=== PATIENT | female | born 1975 | race Two or more races ===

== ENCOUNTER → 2023-08-02 06:38 | Day surgery (SDC) | payer BC, SELFPAY | LOC: GI 06:38 | PROVIDERS: ATTENDING PHYSICIAN Internal Medicine Gastroenterology | DX: D12.0 Benign neoplasm of cecum (principal); D12.3 Benign neoplasm of transverse colon; K63.5 Polyp of colon; K62.5 Hemorrhage of anus and rectum; Z98.890 Other specified postprocedural states | CPT/HCPCS: 45385; 88305 ==